=== PATIENT | male | born 1985 ===

== ENCOUNTER 2018-11-09 17:20 | Emergency (ER) | payer BC ==
[~2018-11-09] VITALS: Ht 185.4 cm; Wt 145.5 kg
[2018-11-09 17:23] VITALS: BP 137/84; TEMP 98.3
[2018-11-09] MEDS ORDERED: PRINIVIL20 MG PO (17:36)
[2018-11-09] MEDS ORDERED: ZYRTEC-D 5 MG-11 TER PO (17:37)
[2018-11-09 18:09] LABS: BASO % 0.3 % (0.0-2.0); EOS # 0.1 (0.0-0.7); EOS % 1.1 % (0-4.0); GRAN # 9.1 (1.4-6.5); GRAN % 75.9 % (42.2-75.2); HEMATOCRIT 43.4 % (42.0-52.0); HEMOGLOBIN 14.4 g/dl (13.5-18.0); LYMPH # 1.9 (1.2-3.4); LYMPH % 15.6 % (20.0-51.0); MEAN CELL VOLUME 86 fl (80.0-100.0); MEAN CORPUSCULAR HEMOGLOBIN 29 pg (27.0-31.0); MEAN CORPUSCULAR HGB CONC 33 g/dl (33.0-37.0); MONO # 0.8 (0.1-0.6); MONO % 6.8 % (1.7-9.3); PLATELET COUNT 278 K/mm3 (130-400); RED BLOOD COUNT 5.06 M/mm3 (4.20-5.60); REDCELL DISTRIBUTION WIDTH-CV 13.3 % (11.5-14.5)
[2018-11-09 18:23] LABS: ALBUMIN 4.3 gm/dL (3.5-5.0); BILIRUBIN,TOTAL 1.5 mg/dL (0.0-1.0); C-REACTIVE PROTEIN 5.8 mg/dL (0.0-0.9); CALCIUM 9.1 mg/dL (8.4-10.2); CREATININE, serum 0.82 mg/dL (0.66-1.25); POTASSIUM 3.6 mmol/L (3.4-5.0); TOTAL PROTEIN 8.4 gm/dL (6.4-8.2)
[2018-11-09 18:29] LABS: COLLECTION METHOD CLEAN CATCH
[2018-11-09 18:36] LABS: MUCOUS Present /lpf; PH 5 (5-8); SQUAMOUS EPITHELIAL 0-2 /hpf; URINE APPEARANCE Clear; URINE BACTERIA None Seen /hpf; URINE BILIRUBIN Negative (NEGATIVE); URINE BLOOD Negative (NEGATIVE); URINE COLOR Yellow; URINE GLUCOSE Negative (NEGATIVE); URINE KETONE Negative (NEGATIVE); URINE LEUKOCYTE ESTERASE Negative (NEGATIVE); URINE NITRATE Negative (NEGATIVE); URINE PROTEIN(semi-quant) Negative (NEGATIVE); URINE RBC 0-2 /hpf; URINE UROBILINOGEN Negative (NEGATIVE)
[2018-11-09] MEDS ORDERED: ZOFRAN 4MG T4 MG/TAB PO (19:08)
[2018-11-09] MEDS ORDERED: FLAGYL500 MG PO (19:08)
[2018-11-09] MEDS ORDERED: NORCO 325 MG-51 TAB PO (19:08)
[2018-11-09] MEDS ORDERED: CIPRO 500MG TA500 MG PO (19:08)
[2018-11-09 19:26] VITALS: PULSE 92
== END 2018-11-09 19:26 | disposition home or self-care (01) ==
LOC: COL.ER 17:20
PROVIDERS: Emergency Medicine
DX: K57.32 Diverticulitis of large intestine without perforation or abscess without bleeding (principal); Z90.89 Acquired absence of other organs
CPT/HCPCS: J2405; J7030; Q9967